=== PATIENT | female | born 1965 | race Caucasian/White ===

== ENCOUNTER 2022-02-15 16:18 | Emergency (ER) | payer OTHER ==
[~2022-02-15] VITALS: Ht 157.5 cm; Wt 81.7 kg
[2022-02-15] MEDS ORDERED: LIPITOR10 MG PO (16:34)
== END 2022-02-15 18:31 | disposition home or self-care (01) ==
LOC: ED 16:18
DX: S86.011A Strain of right Achilles tendon, initial encounter (principal); E78.00 Pure hypercholesterolemia, unspecified; Z88.2 Allergy status to sulfonamides; Z88.5 Allergy status to narcotic agent; Z79.899 Other long term (current) drug therapy; W18.42XA Slipping, tripping and stumbling without falling due to stepping into hole or opening, initial encounter
CPT/HCPCS: 73610; 99283-25; A9270

== ENCOUNTER 2023-04-19 05:43 | Day surgery (SDC) | payer MEDICARE ==
[2023-04-08 10:44] VITALS: BP 133/87
[~2023-04-19] VITALS: Ht 157.5 cm; Wt 85.0 kg
[2023-04-19] VITALS (7 sets, daily range): BP systolic 99–138; BP diastolic 52–74
[~2023-04-19 05:43] MED LIST: ADVIL PM CAPLE1 EACH PO; LIPITOR10 MG PO; MULTI VITAMIN1 EACH PO; TYLENOL EXTRA500 MG PO
[2023-04-19] MEDS ORDERED: [UNRECOGNIZED DRUG - OTHER] PO (06:13)
--- NOTE | 2023-04-19 07:47 | NUR ---
SURGERY TEAM LEAVING WITH PT. PRAYED SILENT PRAYER FOR SUCCESSFUL PROCEDURE AND PETERSEN AND COMPLETE RECOVERY. CONNECTED WITH SPOUSE. HE DENIED ANY NEEDS.
[2023-04-19] MEDS ORDERED: CEFUROXIME250 MG PO (08:59)
[2023-04-19] MEDS ORDERED: XARELTO10 MG PO (08:59)
[2023-04-19] MEDS ORDERED: GABAPENTIN300 MG PO (09:00)
[2023-04-19] MEDS ORDERED: SENNA LAX8.6 MG PO (09:00)
[2023-04-19] MEDS ORDERED: DICLOFENAC SODI75 MG PO (09:00)
[2023-04-19] MEDS ORDERED: DILAUDID2 MG PO (09:01)
--- NOTE | 2023-04-19 09:25 | NUR ---
04/19/23 0925 Jeanne Hopper 0859 TO PACU, ORAL AIRWAY IN PLACE. RESP EVEN & UNLABORED 0903 AWAKENED ON OWN, ORAL AIRWAY REMOVED, PT DENIES PAIN OR C/O 0905 REPOSITIONED FOR XRAY, COURTNEY WELL 0915 INCONTINENT LG AMOUNT URINE. LINEN CHANGE, CRYOCUFF PLACED. PT CONT TO DENY PAIN OR C/O 0920 HOB ELEVATED, PT BEGINING TO MOVE LEFT LOWER EXTREMITY, DENIES PAIN OR C/O
--- NOTE | 2023-04-19 09:45 | NUR ---
PT ARRIVES TO UNIT VIA STRETCHER FROM PACU. PT IS A&O X4 AND ANSWERING QUESTIONS APPROPRIATELY. REPORT RECEIVED FROM LIYAH SNYDER, AT BEDSIDE. PT REPORTS NO PAIN OR NAUSEA AT THIS TIME. PT IS ABLE TO WIGGLE TOES AT THIS TIME. HEEL PROTECTORS, CRYO CUFF, JOE HOSE, FOOT PUMPS IN PLACE AT THIS TIME. PER SAP PORTAL DEVELOPER, LARGE EPISODE OF INCONTINENCE IN PACU UNIT. ICE WATER, CRACKERS, AND APPLESAUCE PROVIDED AT THIS TIME. PT TOLERATING WITHOUT DIFFICULTY SWALLOWING. CALL LIGHT WITHIN REACH, NO FURTHER NEEDS AT THIS TIME. REMAINS AT BEDSIDE.
--- NOTE | 2023-04-19 10:48 | NUR ---
IN PT ROOM FOR ASSESSMENT AND VS. NO ACUTE CHANGES FROM PREVIOUS SURGICAL DRESSING ASSESSMENT. VS TAKEN. PT REPORTS NO PAIN OR NAUSEA. NO CHANGES IN LEVEL OF SPINAL AT THIS TIME, PT REPORTS NUMBNESS AND CONTINUES TO WIGGLE TOES. FULL BED CHANGE D/T SOAKED LINEN. CHUCKS PAD, DEPENDS IN PLACE, NEW GOWN. REMAINS AT BEDSIDE. CALL LIGHT WITHIN REACH, NO FURTHER NEEDS AT THIS TIME. HEEL PROTECTORS, CRYO CUFF, JOE HOSE, AND FOOT PUMPS IN PLACE.
--- NOTE | 2023-04-19 11:50 | NUR ---
IN PT ROOM FOR ASSESSMENT AND VS. NO ACUTE CHANGES FROM SUPERIOR SURGICAL DRESSING. INFERIOR SURGICAL DRESSING HAS SMALL DOT OF SS SHADOWING. PT REPORTS PAIN ONLY WITH MOVEMENT, AND STATES NO NAUSEA. FRESH ICE WATER PROVIDED, LUNCH DELIVERED. PT SITTING UP IN BED EATING AT THIS TIME, NO DIFFICULTY SWALLOWING. SPINAL HAS RESOLVED AND PT CONTINUES TO WIGGLE TOES. CRYO CUFF, JOE HOSE, FOOT PUMPS, AND HEEL PROTECTORS IN PLACE. CALL LIGHT WITHIN REACH, NO FURTHER NEEDS AT THIS TIME.
--- NOTE | 2023-04-19 12:57 | NUR ---
IN PT ROOM FOR ASSESSMENT AND VS. PT TOLERATED SANDWICH WELL AND REPORTS NO NEW NAUSEA. NO ACUTE CHANGES FROM PREVIOUS ASSESSMENT. PT REPORTS NO NEW PAIN AT THIS TIME, PT JUST STATES UNCOMFORTABLE WITH MOVEMENT. CRYO CUFF, JOE HOSE, HEEL PROTECTORS, AND FOOT PUMPS IN PLACE. CALL LIGHT WITHIN REACH, NO FURTHER NEEDS AT THIS TIME. AT BEDSIDE.
--- NOTE | 2023-04-19 13:40 | NUR ---
PT UP WITH EM WITH PHYSICAL THERAPY AT THIS TIME.
--- NOTE | 2023-04-19 14:20 | NUR ---
PT BACK FROM PHYSICAL THERAPY. VS TAKEN. PT REPORTS PAIN 2/10 AND STATES THIS IS TOLERABLE AT THIS TIME. PT REPORTS NO NAUSEA OR DIZZINESS POST AMBULATION. NO ACUTE CHANGES FROM SURGICAL SITE DRESSINGS POST AMBULATION. CALL LIGHT WITHIN REACH, NO FURTHER NEEDS AT THIS TIME.
--- NOTE | 2023-04-19 14:40 | NUR ---
ANDREAS MARTINEZ CALLED AND UPDATED ON PT CONDITION. VERBAL ORDER FOR DISCHARGE GIVEN AT THIS TIME. PT UPDATED, PT NOW GETTING DRESSED WITH ASSISTANCE AT THIS TIME.
--- NOTE | 2023-04-19 15:00 | NUR ---
IN PT ROOM FOR 3RD GRADE READING TEACHER (SEE EMAR). DISCHARGE EDUCATION PROVIDED TO PT AND PT AT THIS TIME, PT AND STATE VERBAL UNDERSTANDING AND NO FURTHER QUESTIONS AT THIS TIME.
--- NOTE | 2023-04-19 15:35 | NUR ---
IV DC'ED BY THIS RN. VS TAKEN. PT REPORTS NO INCREASE IN PAIN OR NAUSEA AND NO DIZZINESS W/AMBULATION. ICE PACK, INCENTIVE SPIROMETER (PT USED X1 W/THIS RN WITNESS TO CORRECT USE), AND ICE WATER PROVIDED AT THIS TIME. THIS RN ESCORTS PT OFF OF UNIT VIA WC TO PASSENGER SIDE OF VEHICLE. STANDBY ASSIST INTO VEHICLE. ALL BELONGINGS IN PT POSSESSION AT THIS TIME. PT AND PT STATE NO FURTHER NEEDS OR QUESTIONS AT THIS TIME.
--- NOTE | 2023-04-21 07:57 | OR ---
[facility] [address] [place], [place] [address] Signed DATE OF OPERATION: 04/19/2023 SURGEON: Raad Monroy MD PREOPERATIVE DIAGNOSIS: Right hip DJD, severe. POSTOPERATIVE DIAGNOSIS: Right hip DJD, severe. PROCEDURE PERFORMED: Right total hip arthroplasty with Ilya. APPRENTICE PAINTER HAND: Adilia Fish PA-C. Adilia was present and critical for all portions of procedure. ANESTHESIA: Spinal. BLOOD LOSS: 200 mL. IMPLANTS: [place] Insignia size 3 stem, 48 mm cup and +0 head. BRIEF HISTORY: Ana Paula is a 57-year-old female with progressive worsening of osteoarthritis of the hip. Nonoperative treatment was insufficient. She wished to proceed with operative. Risks, benefits and alternatives were discussed and she understood and wished to proceed. DESCRIPTION OF PROCEDURE: Once consent was obtained, she was taken to the operating room. After adequate anesthesia, she was placed in the left lateral decubitus position with an axillary roll. All downside pressure points were well padded. The hip was then prepped and draped in a standard sterile fashion. The computer array for the Ilya was then placed in the posterior aspect of the iliac crest 3 fingerbreadths posterior to the ASIS. These were done through separate stab incisions. The hip was then approached through a standard anterior lateral approach. The incision was made, carried through the skin and Electronically Signed By: RAAD MONROY MD 04/21/23 0757 PATIENT NAME: ANA PAULA BE GRETCHEN OPERATIVE REPORT DATE OF : 61 REPORT #: [id number] PHYSICIAN: RAAD MONROY MD PCP: NO PRIMARY CARE PHYSICIAN REPORT IS CONFIDENTIAL AND NOT TO BE RELEASED WITHOUT AUTHORIZATION [facility] [address] [place], [place] [address] Signed subcutaneous tissue down to the IT band, which was divided longitudinally. The vastus lateralis was then split from the tip of the trochanter distally and elevated in a subperiosteal manner around to the level of the lesser trochanter. The capsule and gluteus minimus were then taken off the femoral neck and incised all way up to the acetabular rim. This was then peeled off the anterior neck all the way around to the previous resection. The capsule was then split off the saddle area. The checkpoints were then used to ascertain leg length and register the leg. Once this was completed, the hip was dislocated and the femoral neck cut was made one fingerbreadth above the lesser trochanter. Attention was turned to the acetabulum. The periacetabular soft tissue was removed and the acetabulum was registered with the computer. The robot was brought in and the acetabulum was reamed initially to a 46 and then a 48. The cup was impacted in 23 degrees of anteversion, 45 degrees of abduction. The bone was quite hard and I felt that it would be enough from the screw. Single screw was placed in the posterior superior quadrant. The acetabular liner was then impacted until it was well-seated. The construct was found to be stable. Attention was then turned to the proximal femur which was opened using the [employer] cutter followed by the [place] awl. It was then sequentially broached up to a 3 broach. The preoperative planning called for 4, but that was not going to fit appropriately. We then left the 3 in position, placed a high offset neck and initially a -5 head. This was too loose and too short. We replaced that with a 0 and got good leg lengths and good stability, negative Shuck test. The hip was then dislocated and the trials were removed. The final stem was impacted until it was well-seated. The +0 head was then placed on it and the hip was reduced. Again, good leg lengths and stable range of motion. The wound was copiously irrigated with one bottle of Surgiphor followed by a liter of normal saline. The capsule was closed using #2 FiberWire. The vastus and IT band layers were closed independently using #2 Stratafix, subcutaneous tissue with 0 Stratafix. Skin was closed with 3-0 Stratafix and sealed with LiquiBand and Steri-Strips. Wound was dressed with an Acticoat-7 dressing. She tolerated the procedure well. All sponge, needle, and instrument counts were correct. Raad Monroy MD BA/MODL /[id number] Electronically Signed By: RAAD MONROY MD 04/21/23 0757 PATIENT NAME: ANA PAULA BE OPERATIVE REPORT DATE OF : 61 REPORT #: [id number] PHYSICIAN: RAAD MONROY MD PCP: NO PRIMARY CARE PHYSICIAN REPORT IS CONFIDENTIAL AND NOT TO BE RELEASED WITHOUT AUTHORIZATION [address] [address] Signed Copies: ~ Electronically Signed By: RAAD MONROY MD 04/21/23 0757 PATIENT NAME: RACHNA BEMADDISON GODINEZ OPERATIVE REPORT DATE OF : 61 REPORT #: [id number] PHYSICIAN: RAAD MONROY MD PCP: NO PRIMARY CARE PHYSICIAN REPORT IS CONFIDENTIAL AND NOT TO BE RELEASED WITHOUT AUTHORIZATION
== END 2023-04-19 15:35 | disposition home or self-care (01) ==
LOC: DS 05:43
PROVIDERS: ATTEND Specialist
PROC: 0SR901Z Replacement of Right Hip Joint with Metal Synthetic Substitute, Open Approach (ICD-10-PCS; principal; 2023-04-19 06:45)
DX: M16.11 Unilateral primary osteoarthritis, right hip (principal)
CPT/HCPCS: 01214; 72170; 97161; A9270; C1713; C1776; J0690; J1100; J1885; J2001; J2250; J2405; J2704; J2765; J3010; J7121